=== PATIENT | female | born 1925 | race Caucasian/White ===

== ENCOUNTER → 2016-11-27 | Outpatient (CLI) | payer OTHER, MEDICARE ==
[~2016-11-27] MED LIST: ALBINS INH; ASCA500 PO; BUDE0.5S INH; CALC200S; CITRACAL+D PO; CLC100 PO; CMD2 PO; CMD25 PO; CYAN10005 PO; DLCS PR; DTR5 PO; HYDCR1 TOP; IMD/2 PO; LRT5 PO; MAGNSUS5 PO; PARO1TAB27 PO; SENN-65 PO; [UNRECOGNIZED DRUG - REMARK] PO
[2016-11-27 10:06] LABS: HEMATOCRIT 37.5 % (37-47); MEAN CORPUSCULAR HEMOGLOBIN 30.6 pg (25-34); MEAN CORPUSCULAR HGB CONC 32.5 g/dl (32-36); MEAN PLATELET VOLUME 12.6 fL (7.4-10.4); PLATELET COUNT 295 K/uL (130-400); RED BLOOD COUNT 3.99 M/uL (4.2-5.4); WHITE BLOOD COUNT 8.56 K/uL (4.8-10.8)
[2016-11-27 10:11] LABS: ALKALINE PHOSPHATASE 75 U/L (45-117); ALT/SGPT 15 U/L (12-78); AMYLASE 45 U/L (25-115); AST/SGOT 10 U/L (15-37)
== END ==
LOC: C.LABFOXAC 09:18
PROVIDERS: ATTEND Internal Medicine
DX: R10.9 Unspecified abdominal pain (principal)

== ENCOUNTER → 2016-12-18 | Outpatient (CLI) | payer OTHER, MEDICARE | END | disposition home or self-care (01) | LOC: C.LABFOXAC 09:59 | PROVIDERS: ATTEND Internal Medicine | DX: M15.8 Other polyosteoarthritis (principal) ==